=== PATIENT | male | born 1960 | race African-American/Black ===

== ENCOUNTER 2020-03-02 21:40 | Emergency (ER) | payer OTHER ==
[~2020-03-02] VITALS: Ht 167.6 cm; Wt 75.0 kg
[2020-03-02 22:05] VITALS: BP 148/80
[2020-03-02] MEDS ORDERED: KETOROLAC 30MG/ML VIAL IM ONE (22:30)
== END 2020-03-02 23:16 | disposition home or self-care (01) ==
LOC: ER 21:40
DX: M54.5 Low back pain (principal); I10 Essential (primary) hypertension; I25.10 Atherosclerotic heart disease of native coronary artery without angina pectoris; Z95.2 Presence of prosthetic heart valve; V43.52XA Car driver injured in collision with other type car in traffic accident, initial encounter; Y93.89 Activity, other specified; Y92.488 Other paved roadways as the place of occurrence of the external cause
CPT/HCPCS: 96372; 99283; J1885